=== PATIENT | male | born 1990 | race Caucasian/White ===

== ENCOUNTER 2018-06-25 08:40 | Emergency (ER) | payer OTHER ==
[2018-06-25 08:50] VITALS: BP 115/68
--- NOTE | 2018-06-25 08:57 | EDPHY ---
H & P Time Seen by Provider: 06/25/18 08:52 HPI/ROS: CHIEF COMPLAINT: Right wrist pain post fall snowboarding HISTORY OF PRESENT ILLNESS: 28-year-old [id number] male complaining of acute right wrist pain after he fell on outstretched hand while snowboarding yesterday. Reproducible pain with palpation and range of motion particularly to the radial aspect of the wrist. Intact skin. No proximal pain or injury. No paresthesia. 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 No hand pain. PHYSICAL EXAM (Prior to examination, patient consented to physical exam, hands were washed and my usual and customary physical exam procedures followed) 1) GENERAL: Well-developed, well-nourished, alert and oriented. Appears to be in no acute distress. 2) HEAD: Normocephalic 3) HEENT: Pupils equal, round, reactive to light bilaterally. 4) LUNGS: Breathing comfortably. 5) MUSCULOSKELETAL: Tender to palpation anatomic snuffbox and distal radius. Ulna nontender. Hand nontender. 5th metacarpal nontender. Soft compartments. Normal coloration. 6) SKIN: Intact 7) VASCULAR: pulses and cap refill present are brisk 8) NEUROLOGIC: Radial, ulnar, median nerve function intact with no deficits appreciated on exam DIFFERENTIAL DIAGNOSIS: in no particular order including but not limited to fracture, sprain, compartment syndrome Procedure: Splint A Velcro thumb spica splint was applied by ER recreational therapy technician. After application of the splint I returned and re-examined the patient. The splint was adequately immobilizing the joint and distal to the splint the patient's circulation and sensation were intact. Patient shows no signs of compartment syndrome. Was given orthopedic precautions. Smoking Status: Current some day smoker Constitutional: Initial Vital Signs Temperature (C) 36.5 C 06/25/18 08:47 Heart Rate 55 L 06/25/18 08:47 Respiratory Rate 18 06/25/18 08:47 Blood Pressure 115/68 06/25/18 08:47 O2 Sat (%) 95 06/25/18 08:47 O2 Delivery Mode Room Air Allergies/Adverse Reactions: No Known Allergies Allergy (Unverified 06/25/18 08:47) MDM/Departure - MDM Imaging Results: Imaging Impressions Wrist X-Ray 06/25/18 08:45 Impression: Normal. No acute fracture. Images reviewed myself ED Course/Re-evaluation: Given location of patient's pain, notably on the distal radius and anatomic snuffbox he has been informed that occult fracture not ruled out. I recommended immobilization of the area and follow up with on-call orthopedic surgery. Placed in a thumb spica. Patient feels comfortable being discharged. All questions and concerns addressed by myself. Patient given my usual and customary discharge precautions and instructions regarding their clinical impression. Care of patient under supervision of secondary supervising physician Dr Jurado . - Depart Disposition: Home, Routine, Self-Care Clinical Impression: Right wrist pain Fall from snowboard Qualifiers: Encounter type: initial encounter Qualified Code(s): V00.311A - Fall from snowboard, initial encounter Condition: Good Instructions: Wrist Injury (ED) Additional Instructions: Return to the ER immediately if you experience discoloration, have worsening pain, numbness, tingling, or any other symptoms that concern you. If you received x-rays in the emergency department today, be advised, that ligamentous , tendon, muscular, and other non-bony injury cannot be fully ruled out. [Try to keep your affected extremity elevated above the level of your chest, and keep cold packs on the affected area, for the next 48 hours.] Adult Pain & Fever Control: We recommend Acetaminophen (Tylenol) and Ibuprofen (Motrin,Advil) for pain and fever control. When fever is high or pain severe, both drugs can be used at the same time, but at different intervals. Please note the time differences. Your dose is: Acetaminophen 650mg every 4 to 6 hours Ibuprofen 600mg every 6 hours with food OR Note: do not take Acetaminophen with Hydrocodone (Vicodin, Lortab) or Oycodone (Percocet). These medications also contain Acetaminophen. No more than 3000mg of Acetaminophen should be taken in 24 hours (for an adult). Referrals: Phuc Armstrong MD [Medical Doctor] - 5-7 days, call for appt.
== END 2018-06-25 09:15 | disposition home or self-care (01) ==
DX: S69.91XA Unspecified injury of right wrist, hand and finger(s), initial encounter (principal); V00.311A Fall from snowboard, initial encounter; Y93.23 Activity, snow (alpine) (downhill) skiing, snowboarding, sledding, tobogganing and snow tubing; Y92.828 Other wilderness area as the place of occurrence of the external cause; Y99.9 Unspecified external cause status
CPT/HCPCS: L3807